=== PATIENT | male | born 1965 | race Caucasian/White ===

== ENCOUNTER → 2024-10-30 | Outpatient (CLI) | payer BC | END | disposition home or self-care (01) | LOC: MRI 13:47 | PROVIDERS: ATTEND Neurological Surgery | DX: M47.817 Spondylosis without myelopathy or radiculopathy, lumbosacral region (principal); M47.813 Spondylosis without myelopathy or radiculopathy, cervicothoracic region; M43.13 Spondylolisthesis, cervicothoracic region; M48.07 Spinal stenosis, lumbosacral region; M48.03 Spinal stenosis, cervicothoracic region; M51.26 Other intervertebral disc displacement, lumbar region; M50.30 Other cervical disc degeneration, unspecified cervical region; M41.86 Other forms of scoliosis, lumbar region; M25.78 Osteophyte, vertebrae; M48.8X2 Other specified spondylopathies, cervical region | CPT/HCPCS: 72141; 72148 ==

== ENCOUNTER 2025-02-17 16:24 | Inpatient (IN) | payer BC ==
[~2025-02-17] VITALS: Ht 175.3 cm; Wt 93.4 kg
[~2025-02-17 16:24] MED LIST: ASPI-1497 PO; ATOR40TA70 PO; CLOP-31 PO; EMPA10TA PO; FISH1CAP34 PO; GABA-1180 PO; GLIP5TAB22 PO; IBUP-2030 PO; LISI10TA26 PO; METF-416 PO
[2025-02-17] MEDS ORDERED: IPRATROPIUM/ALBUTEROL 0.5-3(2.5)MG/3ML NEB HHN PRN (17:15)
[2025-02-17] MEDS ORDERED: ONDANSETRON HCL 4MG/2ML INJ IV PRN (17:15)
[2025-02-17] MEDS ORDERED: MAGNESIUM/ALUMINUM HYDROXIDE/SIMETHICONE 30ML UDC PO PRN (17:15)
[2025-02-17] MEDS ORDERED: CLONIDINE 0.1MG TABLET PO PRN (17:15)
[2025-02-17] MEDS ORDERED: GUAIFENESIN 200MG/10ML SUGAR FREE UDC PO PRN (17:15)
[2025-02-17] MEDS ORDERED: DEXTROSE 50% WATER 50ML SYRINGE IV PRN (17:15)
[2025-02-17] MEDS ORDERED: NALOXONE HCL 0.4MG/ML 1ML VIAL IV PRN (17:15)
[2025-02-17 17:25] VITALS: BP 148/86; PULSE 82; RESP 18; TEMP 36.8072
[2025-02-17] MEDS ORDERED: PNEUMOCOCCAL 20-VAL CONJ-DIP CRM 0.5ML IM ONE (17:45)
[2025-02-17 20:00] VITALS: BP 154/75; PULSE 92; RESP 18; TEMP 36.4; O2SAT 96
[2025-02-17] MEDS: OXYCODONE HCL/ACETAMINOPHEN 5/325MG TABLET PO PRN (20:21)
[2025-02-17] MEDS: BLOOD SUGAR DIAGNOSTIC STRIP TEST SCH (21:04)
[2025-02-17] MEDS: ATORVASTATIN CALCIUM 40MG TABLET PO SCH (21:27)
[2025-02-17] MEDS: GABAPENTIN 300MG CAPSULE PO SCH (21:27)
[2025-02-17] MEDS: LISINOPRIL 10MG TABLET PO SCH (21:28)
[2025-02-17] MEDS: INSULIN LISPRO 100 UNITS/ML SUBCUT SCH (21:37)
[2025-02-18 07:43] LABS: BASOPHILS % 0.3 % (0.0-2.0); EOSINOPHILS % 2.2 % (0.0-5.0); HEMATOCRIT. 35.6 % (42.0-52.0); HEMOGLOBIN. 11.9 g/dL (14.0-18.0); LYMPHOCYTES % 41.7 % (20.0-50.0); MEAN PLATELET VOLUME 7.6 fl (7.4-10.4); MONOCYTES % 8.0 % (2.0-8.0); NEUTROPHILS % 47.8 % (40.0-76.0); PLATELET 273 x1000/uL (130-400); RED BLOOD CELL COUNT 4.05 mill/uL (4.7-6.1); RED CELL DISTRIBUTION WIDTH 13.4 % (11.6-14.6)
[2025-02-18 08:00] VITALS: BP 123/82; PULSE 78; RESP 16; TEMP 37.1; O2SAT 98
[2025-02-18] MEDS: METFORMIN HCL 500MG TABLET PO SCH (09:28)
[2025-02-18] MEDS: LACTULOSE 20G/30ML UDC PO SCH (11:30)
[2025-02-18] MEDS: NA PHOS,M-B/NA PHOS,DI-BA ENEMA 118ML PR ONE (12:00)
[2025-02-18 12:08] LABS: CREATININE 0.6 mg/dL (0.6-1.3); UREA NITROGEN BLOOD 6 mg/dL (9-23)
[2025-02-18 12:10] LABS: ASPARTATE AMINOTRANSFERASE 13 IU/L (<34); BILIRUBIN TOTAL 0.8 mg/dL (0.1-1.0); PROTEIN TOTAL 6.0 g/dL (6.0-8.3)
[2025-02-18 20:00] VITALS: BP 132/75; PULSE 88; RESP 20; TEMP 36.6; O2SAT 97
[2025-02-19 08:00] VITALS: BP 129/79; PULSE 79; RESP 18; TEMP 36.7; O2SAT 95
[2025-02-19 08:17] LABS: BASOPHILS % 0.4 % (0.0-2.0); EOSINOPHILS % 2.2 % (0.0-5.0); HEMATOCRIT. 37.4 % (42.0-52.0); HEMOGLOBIN. 12.2 g/dL (14.0-18.0); LYMPHOCYTES % 39.5 % (20.0-50.0); MEAN PLATELET VOLUME 7.3 fl (7.4-10.4); MONOCYTES % 7.8 % (2.0-8.0); NEUTROPHILS % 50.1 % (40.0-76.0); PLATELET 304 x1000/uL (130-400); RED BLOOD CELL COUNT 4.26 mill/uL (4.7-6.1); RED CELL DISTRIBUTION WIDTH 13.4 % (11.6-14.6)
[2025-02-19 08:43] LABS: CREATININE 0.6 mg/dL (0.6-1.3)
[2025-02-19 08:44] LABS: UREA NITROGEN BLOOD 6 mg/dL (9-23)
[2025-02-19 08:45] LABS: ASPARTATE AMINOTRANSFERASE 15 IU/L (<34)
[2025-02-19 08:46] LABS: BILIRUBIN TOTAL 0.8 mg/dL (0.1-1.0); PROTEIN TOTAL 6.3 g/dL (6.0-8.3)
[2025-02-19 08:49] LABS: FOLIC ACID (FOLATE) SERUM 16.25 ng/mL (>5.38)
[2025-02-19 08:50] LABS: VITAMIN B12 SERUM 424 pg/mL (211-911)
[2025-02-19 20:00] VITALS: BP 124/79; PULSE 80; RESP 20; TEMP 36.8; O2SAT 97
[2025-02-19] MEDS: CYANOCOBALAMIN 1000MCG/ML VIAL IM SCH (22:06)
[2025-02-19] MEDS: DICLOFENAC SODIUM 75MG DR TABLET PO SCH (22:10)
[2025-02-20 08:00] VITALS: BP 104/72; PULSE 89; RESP 14; TEMP 36.6; O2SAT 98
[2025-02-20] MEDS: ASCORBIC ACID 500 MG TABLET PO SCH (08:42)
[2025-02-20] MEDS: FERROUS SULFATE 325MG TABLET PO SCH (08:42)
[2025-02-20] MEDS: DOCUSATE SODIUM 100MG CAPSULE PO PRN (16:47)
[2025-02-20] MEDS: ERGOCALCIFEROL 50000UNITS CAPSULE PO SCH (18:19)
[2025-02-20] MEDS: BISACODYL 10MG SUPP PR SCH (18:19)
[2025-02-20 20:00] VITALS: BP 112/67; PULSE 77; RESP 18; TEMP 36.6; O2SAT 97
[2025-02-20] MEDS: POLYETHYLENE GLYCOL 3350 (17GM) 1 DOSE PACK PO SCH (21:34)
[2025-02-21 08:00] VITALS: BP 120/68; PULSE 92; RESP 18; TEMP 36.5; O2SAT 98
[2025-02-21] MEDS: NA PHOS,M-B/NA PHOS,DI-BA ENEMA 118ML PR NR (16:56)
[2025-02-21] MEDS: LACTULOSE 20G/30ML UDC PO SCH (17:43)
[2025-02-21 20:00] VITALS: BP 138/80; PULSE 80; RESP 18; TEMP 36.4; O2SAT 99
[2025-02-22 08:00] VITALS: BP 126/72; PULSE 77; RESP 18; TEMP 36.5; O2SAT 97
[2025-02-22] MEDS ORDERED: NA PHOS,M-B/NA PHOS,DI-BA ENEMA 118ML PR PRN (16:54)
[2025-02-22 20:00] VITALS: BP 116/7; PULSE 78; RESP 18; TEMP 36.6; O2SAT 98
[2025-02-23 08:00] VITALS: BP 114/72; PULSE 65; RESP 18; TEMP 36.2; O2SAT 98
[2025-02-23 20:00] VITALS: BP 114/68; PULSE 78; RESP 19; TEMP 36.6; O2SAT 96
[2025-02-23 23:31] VITALS: BP 116/68; PULSE 77; RESP 19; TEMP 36.6; O2SAT 98
[2025-02-24 08:15] VITALS: BP 106/69; PULSE 81; RESP 18; TEMP 36.6; O2SAT 98
[2025-02-24 19:08] LABS: ANTI-CARDIOLIPIN AB IGG < 9 GPL U/mL (0-14); ANTI-CARDIOLIPIN AB IGM < 9 MPL U/mL (0-12)
[2025-02-24 20:00] VITALS: BP 116/69; PULSE 73; RESP 18; TEMP 36; O2SAT 96
[2025-02-25 06:35] LABS: BASOPHILS % 0.5 % (0.0-2.0); EOSINOPHILS % 0.3 % (0.0-5.0); HEMATOCRIT. 37.1 % (42.0-52.0); HEMOGLOBIN. 12.1 g/dL (14.0-18.0); LYMPHOCYTES % 28.4 % (20.0-50.0); MEAN PLATELET VOLUME 7.5 fl (7.4-10.4); MONOCYTES % 3.4 % (2.0-8.0); NEUTROPHILS % 67.4 % (40.0-76.0); PLATELET 389 x1000/uL (130-400); RED BLOOD CELL COUNT 4.20 mill/uL (4.7-6.1); RED CELL DISTRIBUTION WIDTH 13.4 % (11.6-14.6)
[2025-02-25 06:51] LABS: CREATININE 0.8 mg/dL (0.6-1.3); UREA NITROGEN BLOOD 14 mg/dL (9-23)
[2025-02-25 06:53] LABS: ASPARTATE AMINOTRANSFERASE 13 IU/L (<34); BILIRUBIN TOTAL 0.6 mg/dL (0.1-1.0); PROTEIN TOTAL 6.4 g/dL (6.0-8.3)
[2025-02-25 08:00] VITALS: BP 119/62; PULSE 81; RESP 18; TEMP 36.7; O2SAT 98
[2025-02-25 20:00] VITALS: BP 105/56; PULSE 71; RESP 18; TEMP 36.2; O2SAT 97
[2025-02-26 04:07] LABS: ANA IFA Negative (.)
[2025-02-26 08:00] VITALS: BP 131/83; PULSE 57; RESP 19; TEMP 36.7; O2SAT 98
[2025-02-26 08:01] LABS: BASOPHILS % 0.3 % (0.0-2.0); EOSINOPHILS % 0.4 % (0.0-5.0); HEMATOCRIT. 37.0 % (42.0-52.0); HEMOGLOBIN. 12.1 g/dL (14.0-18.0); LYMPHOCYTES % 31.1 % (20.0-50.0); MEAN PLATELET VOLUME 7.4 fl (7.4-10.4); MONOCYTES % 4.0 % (2.0-8.0); NEUTROPHILS % 64.2 % (40.0-76.0); PLATELET 413 x1000/uL (130-400); RED BLOOD CELL COUNT 4.19 mill/uL (4.7-6.1); RED CELL DISTRIBUTION WIDTH 13.4 % (11.6-14.6)
[2025-02-26 11:39] LABS: CLARITY URINE CLEAR (CLEAR); COLOR URINE YELLOW (YELLOW); SPECIFIC GRAVITY URINE 1.015 (1.005-1.030)
[2025-02-26 11:40] LABS: GLUCOSE URINE NEGATIVE (NEGATIVE); KETONES URINE NEGATIVE (NEGATIVE); LEUKOCYTE ESTERASE URINE NEGATIVE (NEGATIVE); NITRITE URINE NEGATIVE (NEGATIVE); OCCULT BLOOD URINE NEGATIVE (NEGATIVE); PH URINE 6.0 (4.5-8.0); PROTEIN URINE NEGATIVE (NEGATIVE); UROBILINOGEN URINE 0.2 E.U./dL (0.2-1.0)
[2025-02-26 20:00] VITALS: BP 102/64; PULSE 61; RESP 20; TEMP 36.3; O2SAT 95
[2025-02-27 08:00] VITALS: BP 137/82; PULSE 80; RESP 16; TEMP 36.4; O2SAT 98
[2025-02-27] MEDS ORDERED: PROT40 MT (09:40)
[2025-02-27] MEDS ORDERED: DICL75TA5 MT (09:40)
[2025-02-27 10:43] VITALS: BP 115/69; PULSE 81; RESP 18; TEMP 97.9
== END 2025-02-27 11:20 | disposition home health service (06) | DRG 552 ==
PROVIDERS: ADMIT Physical Medicine & Rehabilitation Spinal Cord Injury Medicine; ATTEND Internal Medicine
PROC: 3E0U33Z Introduction of Anti-inflammatory into Joints, Percutaneous Approach (ICD-10-PCS; principal; 2025-02-19)
PROC: 3E0U33Z Introduction of Anti-inflammatory into Joints, Percutaneous Approach (ICD-10-PCS; 2025-02-19)
PROC: 3E0U3BZ Introduction of Anesthetic Agent into Joints, Percutaneous Approach (ICD-10-PCS; 2025-02-19)
PROC: 3E0U3BZ Introduction of Anesthetic Agent into Joints, Percutaneous Approach (ICD-10-PCS; 2025-02-19)
PROC: 3E0U33Z Introduction of Anti-inflammatory into Joints, Percutaneous Approach (ICD-10-PCS; 2025-02-24)
PROC: 3E0U33Z Introduction of Anti-inflammatory into Joints, Percutaneous Approach (ICD-10-PCS; 2025-02-24)
PROC: 3E0U3BZ Introduction of Anesthetic Agent into Joints, Percutaneous Approach (ICD-10-PCS; 2025-02-24)
PROC: 3E0U3BZ Introduction of Anesthetic Agent into Joints, Percutaneous Approach (ICD-10-PCS; 2025-02-24)
PROC: 3E0233Z Introduction of Anti-inflammatory into Muscle, Percutaneous Approach (ICD-10-PCS; 2025-02-24)
PROC: 3E023BZ Introduction of Anesthetic Agent into Muscle, Percutaneous Approach (ICD-10-PCS; 2025-02-24)
DX: M48.061 Spinal stenosis, lumbar region without neurogenic claudication (principal); G82.20 Paraplegia, unspecified; I69.351 Hemiplegia and hemiparesis following cerebral infarction affecting right dominant side; D84.9 Immunodeficiency, unspecified; R65.10 Systemic inflammatory response syndrome (SIRS) of non-infectious origin without acute organ dysfunction; I10 Essential (primary) hypertension; I48.0 Paroxysmal atrial fibrillation; G89.4 Chronic pain syndrome; M75.01 Adhesive capsulitis of right shoulder; R53.81 Other malaise; D50.9 Iron deficiency anemia, unspecified; E11.40 Type 2 diabetes mellitus with diabetic neuropathy, unspecified; E53.8 Deficiency of other specified B group vitamins; E78.5 Hyperlipidemia, unspecified; K59.00 Constipation, unspecified; M47.816 Spondylosis without myelopathy or radiculopathy, lumbar region; M47.817 Spondylosis without myelopathy or radiculopathy, lumbosacral region; M51.369 Other intervertebral disc degeneration, lumbar region without mention of lumbar back pain or lower extremity pain; M70.71 Other bursitis of hip, right hip; R53.1 Weakness; K30 Functional dyspepsia; M77.9 Enthesopathy, unspecified; R42 Dizziness and giddiness; Z79.02 Long term (current) use of antithrombotics/antiplatelets; Z79.4 Long term (current) use of insulin; Z79.84 Long term (current) use of oral hypoglycemic drugs; Z79.899 Other long term (current) drug therapy; Z87.891 Personal history of nicotine dependence; Z79.82 Long term (current) use of aspirin
CPT/HCPCS: 36415; 74018; 80053; 81003; 82306; 82607; 82728; 82746; 82962; 83036; 83540; 83550; 84134; 84443; 85025; 86147; 86256; 87340; 92523; 92610; 97110; 97112; 97116; 97162; 97166; 97530; 97535; A4606; J1815; J3420